=== PATIENT | female | born 1970 | race American Indian/Alaskan Native ===

== ENCOUNTER 2017-03-09 09:33 | Outpatient (CLI) | payer OTHER ==
--- NOTE | 2017-03-09 10:19 | XRay Report ---
CHEST 2 VIEWS INDICATION: Chronic cough. COMPARISON: 04/16/2014. FINDINGS: PA and lateral chest radiographs demonstrate normal cardiomediastinal silhouette. Clear lungs. Few stable bony degenerative changes. CONCLUSION: No acute disease in the chest. Thank you for the opportunity to participate in this patient's care.
== END 2017-03-09 09:34 | disposition home or self-care (01) ==
LOC: XRAY 09:33
PROVIDERS: ATTEND Internal Medicine
DX: R05 Cough (principal)
CPT/HCPCS: 71020

== ENCOUNTER 2017-07-05 11:27 | Emergency (ER) | payer OTHER ==
[2017-07-05 12:10] LABS: Basophils % (Auto) 0.9 % (0.0-1.8); Eosinophils % (Auto) 2.6 % (0.0-4.3); Hematocrit 39.7 % (30.3-42.9); Hemoglobin 13.1 gm/dl (10.1-14.3); Mean Corpuscular HGB Conc 33 % (30-34); Mean Corpuscular Hemoglobin 31 pg (28-32); Mean Corpuscular Volume 93 fl (79-97); Red Blood Count 4.28 M/mm3 (3.65-5.03); Red Cell Distribution Width 13.3 % (13.2-15.2); White Blood Count 7.4 K/mm3 (4.5-11.0)
[2017-07-05 12:29] LABS: Anion Gap 16 mmol/L; Blood Urea Nitrogen 10 mg/dL (7-17); Calcium 8.8 mg/dL (8.4-10.2); Carbon Dioxide 26 mmol/L (22-30); Chloride 103.1 mmol/L (98-107); Glucose 120 mg/dL (65-100); Potassium 4.4 mmol/L (3.6-5.0); Sodium 141 mmol/L (137-145)
[2017-07-05 14:23] LABS: Platelet Count 196 K/mm3 (140-440)
[2017-07-05] MEDS ORDERED: DECADRON IM ONE (14:42)
[2017-07-05] MEDS ORDERED: XYLOCAINE 1% 20 mL INFILTRATI ONE (14:43)
[2017-07-05] MEDS ORDERED: NORCO 5/325 PO ONE (14:51)
[2017-07-05 15:06] VITALS: BP 160/104
--- NOTE | 2017-07-05 15:28 | Emergency Department Report ---
ED General Adult HPI - General Chief complaint: Chest Pain Stated complaint: CHEST PAIN/LEFT ARM PAIN/HEADACHE Time Seen by Provider: 07/05/17 14:26 Source: patient Mode of arrival: Ambulatory Limitations: No Limitations - History of Present Illness Initial comments: Patient does not complain of chest pain at all. She complains warm pain which involves the subacromial bursa area of the left shoulder. She clearly states that she has upper arm pain and might radiate at times shoulder or just hurt at the shoulder itself. Does not involve the anterior chest over the posterior chest. It's been present for the last few days. It is clearly augmented by raising up her left arm. It is not pleuritic. There are no associated symptoms. She denies dyspnea nausea vomiting dizziness. The arm is not swollen. There has not been any recent injury. She denies any neck pain or any distal weakness or numbness. She said no paresthesias. -: Gradual, days(s) Location: left (shoulder) Radiation: other (as above) Severity scale (0 -10): 8 Quality: aching Consistency: intermittent Improves with: none Worsens with: movement Associated Symptoms: denies other symptoms - Related Data Home Medications Medication Instructions Recorded Confirmed Last Taken Nebivolol HCl [Bystolic] 5 mg PO DAILY 12/07/13 04/16/14 12/06/13 Dexlansoprazole [Dexilant] 60 mg PO DAILY 04/16/14 04/16/14 Unknown Previous Rx's Medication Instructions Recorded Last Taken Type HYDROcodone/APAP 5-325 [[place] 1 each PO Q6HR PRN #20 tablet 04/16/14 Unknown Rx 5/325 mg] Hyoscyamine Subl [Levsin Sl] 0.125 mg SL Q4HR PRN #20 tablet 04/16/14 Unknown Rx HYDROcodone/APAP 5-325 [[place] 1 each PO Q6HR PRN #14 tablet 07/05/17 Unknown Rx 5/325] Allergies Allergy/AdvReac Type Severity Reaction Status Date / Time No Known Allergies Allergy Verified 07/05/17 11:33 ED Review of Systems ROS: Stated complaint: CHEST PAIN/LEFT ARM PAIN/HEADACHE Other details as noted in HPI Constitutional: denies: chills, fever Eyes: denies: eye pain, eye discharge, vision change ENT: denies: ear pain, throat pain Respiratory: denies: cough, shortness of breath, wheezing Cardiovascular: denies: chest pain, palpitations Endocrine: no symptoms reported Gastrointestinal: denies: abdominal pain, nausea, diarrhea Genitourinary: denies: urgency, dysuria, discharge Musculoskeletal: as per HPI. denies: back pain, joint swelling, arthralgia Skin: denies: rash, lesions Neurological: denies: headache, weakness, paresthesias Psychiatric: denies: anxiety, depression Hematological/Lymphatic: denies: easy bleeding, easy bruising ED Past Medical Hx - Past Medical History Hx Hypertension: Yes Additional medical history: heart murmur - Surgical History Additional Surgical History: left ovary removed - Social History Smoking Status: Current Some Day Smoker Substance Use Type: None - Medications Home Medications: Home Medications Medication Instructions Recorded Confirmed Last Taken Type Nebivolol HCl [Bystolic] 5 mg PO DAILY 12/07/13 04/16/14 12/06/13 History Dexlansoprazole [Dexilant] 60 mg PO DAILY 04/16/14 04/16/14 Unknown History HYDROcodone/APAP 5-325 [[place] 1 each PO Q6HR PRN #20 tablet 04/16/14 Unknown Rx 5/325 mg] Hyoscyamine Subl [Levsin Sl] 0.125 mg SL Q4HR PRN #20 tablet 04/16/14 Unknown Rx HYDROcodone/APAP 5-325 [[place] 1 each PO Q6HR PRN #14 tablet 07/05/17 Unknown Rx 5/325] ED Physical Exam - General Limitations: No Limitations General appearance: alert, in no apparent distress - Head Head exam: Present: atraumatic, normocephalic - Eye Eye exam: Present: normal appearance, PERRL, EOMI. Absent: scleral icterus - ENT ENT exam: Present: mucous membranes moist - Neck Neck exam: Present: normal inspection. Absent: tenderness, meningismus - Respiratory Respiratory exam: Present: normal lung sounds bilaterally. Absent: respiratory distress - Cardiovascular Cardiovascular Exam: Present: regular rate, normal rhythm. Absent: systolic murmur, diastolic murmur, rubs, gallop - GI/Abdominal GI/Abdominal exam: Present: soft, normal bowel sounds. Absent: distended, tenderness, guarding, rebound, rigid - Extremities Exam Extremities exam: Present: normal inspection, tenderness, other (there is no swelling of the shoulder or upper arm. There is clearly reproducible pain in the subacromial bursa area especially on abduction. There is no overlying erythema.) - Back Exam Back exam: Present: normal inspection. Absent: CVA tenderness (R), CVA tenderness (L), muscle spasm, paraspinal tenderness, vertebral tenderness - Neurological Exam Neurological exam: Present: alert, oriented X3, CN II-XII intact. Absent: motor sensory deficit - Psychiatric Psychiatric exam: Present: normal affect, normal mood - Skin Skin exam: Present: warm, dry, intact, normal color. Absent: rash ED Course Vital Signs 07/05/17 07/05/17 07/05/17 11:34 12:26 12:27 Temperature 98.8 F Pulse Rate 66 Respiratory 16 Rate Blood Pressure 158/78 150/75 O2 Sat by Pulse 100 98 97 Oximetry 07/05/17 07/05/17 07/05/17 12:28 12:30 12:32 Temperature Pulse Rate 60 Respiratory 19 Rate Blood Pressure 150/75 150/75 150/75 O2 Sat by Pulse 97 98 98 Oximetry 07/05/17 07/05/17 07/05/17 13:00 13:30 14:32 Temperature Pulse Rate 57 L 57 L 64 Respiratory 16 15 Rate Blood Pressure 143/72 143/72 143/72 O2 Sat by Pulse 97 97 99 Oximetry 07/05/17 07/05/17 15:00 15:06 Temperature Pulse Rate 65 Respiratory 18 18 Rate Blood Pressure 160/104 O2 Sat by Pulse 98 98 Oximetry - Reevaluation(s) Reevaluation #1: Patient is given a shoulder injection of 10 mg of Decadron and 1 mL of lidocaine 07/05/17 15:28 Reevaluation #2: Medicine for Patient declined x-ray. She decided to leave after receiving her injection. 07/05/17 16:13 ED Medical Decision Making - Lab Data Result diagrams: 07/05/17 11:55 07/05/17 11:55 Laboratory Results - last 24 hr 07/05/17 07/05/17 11:55 11:55 WBC 7.4 RBC 4.28 Hgb 13.1 Hct 39.7 MCV 93 MCH 31 MCHC 33 RDW 13.3 Plt Count 196 Lymph % (Auto) 36.7 H [place] % (Auto) 5.4 Eos % (Auto) 2.6 Baso % (Auto) 0.9 Lymph # 2.7 [place] # 0.4 Eos # 0.2 Baso # 0.1 Seg Neutrophils % 54.4 Seg Neutrophils # 4.0 Sodium 141 Potassium 4.4 Chloride 103.1 Carbon Dioxide 26 Anion Gap 16 BUN 10 Creatinine 0.8 Estimated GFR > 60 BUN/Creatinine Ratio 12.50 Glucose 120 H Calcium 8.8 Troponin T < 0.010 - EKG Data -: EKG Interpreted by Me EKG shows normal: sinus rhythm, axis, intervals, QRS complexes, ST-T waves Rate: normal - EKG Data Interpretation: no acute changes - Radiology Data Radiology results: pending Critical care attestation.: If time is entered above; I have spent that time in minutes in the direct care of this critically ill patient, excluding procedure time. ED Disposition Clinical Impression: Bursitis of left shoulder Disposition: DC- TO HOME OR SELFCARE Is pt being admited?: No Does the pt Need Aspirin: No Condition: Stable Instructions: Shoulder Bursitis (ED) Additional Instructions: Try to keep her shoulder mobile but do not engage in any lifting for the next few days. Follow-up with the orthopedic doctor. Return any acute change or problem very follow-up with your primary care physician as well. Prescriptions: HYDROcodone/APAP 5-325 [[place] 5/325] 1 each PO Q6HR PRN #14 tablet PRN Reason: Pain Referrals: PRIMARY CAREMD [Primary Care Provider] - 3-5 Days DOMI PEREZ MD [Staff Physician] - 3-5 Days Time of Disposition: 15:28
== END 2017-07-05 15:40 | disposition home or self-care (01) ==
LOC: ED 11:27
DX: M75.52 Bursitis of left shoulder (principal); I10 Essential (primary) hypertension; Z72.0 Tobacco use
CPT/HCPCS: 36415; 80048; 84484; 85025; 93005; 93010; 96372; 99284; J1100

== ENCOUNTER 2018-06-27 18:55 | Inpatient (IN) | payer OTHER ==
[2018-06-27] MEDS ORDERED: ASPIRIN PO ONE (19:24)
[2018-06-27 19:49] LABS: Basophils # (Auto) 0.1 K/mm3 (0.0-0.1); Eosinophils # (Auto) 0.2 K/mm3 (0.0-0.4); Eosinophils % (Auto) 2.3 % (0.0-4.3); Hematocrit 41.1 % (30.3-42.9); Lymphocytes # (Auto) 3.2 K/mm3 (1.2-5.4); Lymphocytes % (Auto) 44.4 % (13.4-35.0); Mean Corpuscular HGB Conc 34 % (30-34); Mean Corpuscular Hemoglobin 32 pg (28-32); Mean Corpuscular Volume 93 fl (79-97); Monocytes # (Auto) 0.4 K/mm3 (0.0-0.8); Monocytes % (Auto) 5.9 % (0.0-7.3); Red Blood Count 4.44 M/mm3 (3.65-5.03); Red Cell Distribution Width 13.5 % (13.2-15.2)
[2018-06-27 19:59] LABS: Platelet Count 211 K/mm3 (140-440)
[2018-06-27 20:07] LABS: BUN/Creatinine Ratio 10; Blood Urea Nitrogen 8 mg/dL (7-17); Calcium 9.4 mg/dL (8.4-10.2); Hemolysis Index 7
--- NOTE | 2018-06-28 01:10 | Emergency Department Report ---
ED Chest Pain HPI - General Chief Complaint: Chest Pain Stated Complaint: CHEST PAIN Time Seen by Provider: 06/28/18 00:55 Source: patient Mode of arrival: Ambulatory Limitations: No Limitations - History of Present Illness Initial Comments: 47-year-old female with a past medical history hypertension and heart murmur presents to the hospital complaints of intermittent chest tightness for 2-3 days. Tightness is in the middle of the chest and radiates to the left side. Positive associated shortness of breath and lightheadedness. Symptoms exacerbated with exertion. Positive history of hypertension but she does not take aspirin, denies smoking, denies family history of CAD. She also denies history of PE/DVT, recent travel, calf tenderness, or leg edema. Last stress test was approximately 5 to go and to her knowledge was normal. Patient also complains of waking up with bilateral hand paresthesias with has since resolved. - Related Data Home Medications Medication Instructions Recorded Confirmed Last Taken Nebivolol HCl [Bystolic] 5 mg PO DAILY 12/07/13 04/16/14 12/06/13 Dexlansoprazole [Dexilant] 60 mg PO DAILY 04/16/14 04/16/14 Unknown Previous Rx's Medication Instructions Recorded Last Taken Type HYDROcodone/APAP 5-325 [[place] 1 each PO Q6HR PRN #20 tablet 04/16/14 Unknown Rx 5/325 mg] Hyoscyamine Subl [Levsin Sl] 0.125 mg SL Q4HR PRN #20 tablet 04/16/14 Unknown Rx HYDROcodone/APAP 5-325 [[place] 1 each PO Q6HR PRN #14 tablet 07/05/17 Unknown Rx 5/325] Allergies Allergy/AdvReac Type Severity Reaction Status Date / Time No Known Allergies Allergy Verified 07/05/17 11:33 Heart Score - HEART Score History: Slightly suspicious EKG: Non-specific Age: 45-65 Risk factors: 1-2 risk factors Troponin: < normal limit HEART Score: 3 ED Review of Systems ROS: Stated complaint: CHEST PAIN Other details as noted in HPI Comment: All other systems reviewed and negative ED Past Medical Hx - Past Medical History Hx Hypertension: Yes Additional medical history: heart murmur - Surgical History Additional Surgical History: left ovary removed - Social History Smoking Status: Current Every Day Smoker Substance Use Type: None - Medications Home Medications: Home Medications Medication Instructions Recorded Confirmed Last Taken Type Nebivolol HCl [Bystolic] 5 mg PO DAILY 12/07/13 04/16/14 12/06/13 History Dexlansoprazole [Dexilant] 60 mg PO DAILY 04/16/14 04/16/14 Unknown History HYDROcodone/APAP 5-325 [[place] 1 each PO Q6HR PRN #20 tablet 04/16/14 Unknown Rx 5/325 mg] Hyoscyamine Subl [Levsin Sl] 0.125 mg SL Q4HR PRN #20 tablet 04/16/14 Unknown Rx HYDROcodone/APAP 5-325 [[place] 1 each PO Q6HR PRN #14 tablet 07/05/17 Unknown Rx 5/325] ED Physical Exam - General Limitations: No Limitations - Other Other exam information: General: No limitations, patient is alert in no acute distress Head exam: Atraumatic, normocephalic Eyes exam: Normal appearance ENT: Moist mucous membrane, normal oropharynx Neck exam: Normal inspection, full range of motion, no meningismus nontender Respiratory exam: Clear to auscultation bilateral, no wheezes, rales, crackles Cardiovascular: Normal rate and rhythm, mild sternal chest pain that is different from her intermittent chest tightness Abdomen: Soft, nondistended, and nontender, with normal bowel sounds, no rebound, or guarding Extremity: Full range of motion normal inspection no deformity, no calf tenderness or edema Back: Normal Inspection, full range of motion, no calf tenderness or edema Neurologic: Alert, oriented x3, cranial nerves intact, no motor or sensory deficit Psychiatric: normal affect, normal mood Skin: Warm, dry, intact ED Course Vital Signs 06/27/18 06/28/18 19:17 01:21 Temperature 98.2 F 98.3 F Pulse Rate 64 68 Respiratory 18 16 Rate Blood Pressure 142/68 Blood Pressure 143/76 [Left] O2 Sat by Pulse 97 100 Oximetry BETTY score - Betty Score Age > 65: (0) No Aspirin use within the Past 7 Days: (0) No 3 or more CAD Risk Factors: (0) No 2 or more Angina events in past 24 hrs: (1) Yes Known CAD with more than 50% Stenosis: (0) No ST Deviation Greater than 0.5mm: (0) No ED Medical Decision Making - Lab Data Result diagrams: 06/27/18 19:36 06/27/18 19:36 Lab Results 06/27/18 06/27/18 06/27/18 Range/Units 19:36 19:36 22:27 WBC 7.3 (4.5-11.0) K/mm3 RBC 4.44 (3.65-5.03) M/mm3 Hgb 14.0 (10.1-14.3) gm/dl Hct 41.1 (30.3-42.9) % MCV 93 (79-97) fl MCH 32 (28-32) pg MCHC 34 (30-34) % RDW 13.5 (13.2-15.2) % Plt Count 211 (140-440) K/mm3 Lymph % (Auto) 44.4 H (13.4-35.0) % [place] % (Auto) 5.9 (0.0-7.3) % Eos % (Auto) 2.3 (0.0-4.3) % Baso % (Auto) 1.0 (0.0-1.8) % Lymph # 3.2 (1.2-5.4) K/mm3 [place] # 0.4 (0.0-0.8) K/mm3 Eos # 0.2 (0.0-0.4) K/mm3 Baso # 0.1 (0.0-0.1) K/mm3 Seg Neutrophils % 46.4 (40.0-70.0) % Seg Neutrophils # 3.4 (1.8-7.7) K/mm3 Sodium 140 (137-145) mmol/L Potassium 4.0 (3.6-5.0) mmol/L Chloride 101.7 (98-107) mmol/L Carbon Dioxide 27 (22-30) mmol/L Anion Gap 15 mmol/L BUN 8 (7-17) mg/dL Creatinine 0.8 (0.7-1.2) mg/dL Estimated GFR > 60 ml/min BUN/Creatinine Ratio 10 % Glucose 96 (65-100) mg/dL Calcium 9.4 (8.4-10.2) mg/dL Troponin T < 0.010 < 0.010 (0.00-0.029) ng/mL - EKG Data -: EKG Interpreted by Me ([facility]) EKG shows normal: sinus rhythm, axis (qrs 64), QRS complexes (qrsd 81), ST-T waves (no stemi) Rate: normal (62) - EKG Data When compared to previous EKG there are: no significant change (07/05/17) - Radiology Data Radiology results: report reviewed cxr read by radiology: ashu - Medical Decision Making cp neg trop x2 ekg lvh will admit for stress asa provided - Differential Diagnosis atypical cp, pe, mi, unstable angina, costochondritis Critical Care Time: No Critical care attestation.: If time is entered above; I have spent that time in minutes in the direct care of this critically ill patient, excluding procedure time. ED Disposition Clinical Impression: Chest pain, HTN (hypertension) Disposition: OP ADMIT IP TO THIS HOSP Is pt being admited?: Yes Condition: Stable Time of Disposition: 01:11 (Dr Echols/hosp)
[2018-06-28] MEDS ORDERED: ASPIRIN ONE (01:28)
--- NOTE | 2018-06-28 01:32 | XRay Report ---
FINAL REPORT EXAM: XR CHEST ROUTINE 2V HISTORY: sob and chest pain TECHNIQUE: 2 views of the chest. PRIORS: None. FINDINGS: The cardiomediastinal silhouette appears normal. The lungs are clear. The bones and soft tissues are unremarkable. IMPRESSION: No evidence of acute cardiopulmonary disease
[2018-06-28] MEDS ORDERED: TYLENOL PO ONE (02:08)
[2018-06-28] MEDS ORDERED: TYLENOL ONE (03:41)
--- NOTE | 2018-06-28 06:32 | History and Physical Report ---
CHIEF COMPLAINT: Left-sided chest pain with radiation to left arm. HISTORY OF PRESENT ILLNESS: A 47-year-old female with no significant past medical history except hypertension and heart murmur and gastroesophageal reflux disease, comes in for left-sided chest pain since this morning. The patient also has tingling and pain in the left arm. 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 The patient is concerned about cerebrovascular accident. PAST MEDICAL HISTORY: Significant for hypertension, gastroesophageal reflux disease and irritable bowel syndrome. CURRENT MEDICATIONS: Bystolic 5 mg once a day, Dexilant 60 mg once a day, Levsin sublingual 0.125 q. 4 p.r.n., [place] 5/325 q. 6 hours p.r.n. PAST SURGICAL HISTORY: Left ovary removed. SOCIAL HISTORY: Does not smoke. No alcohol, no recreational drugs. FAMILY HISTORY: Hypertension. REVIEW OF SYSTEMS: Significant for the left chest pain with radiation to left arm. No weakness. Fourteen-point review of systems done. PHYSICAL EXAMINATION: GENERAL: A middle-aged female, cooperative during examination. VITAL SIGNS: Blood pressure is 138/80, respirations 16, temperature 98, repeat blood pressure is 142/68, sats are 97%, respiratory rate was 18. HEENT: Unremarkable. NECK: Supple, no lymphadenopathy, no thyromegaly. LUNGS: Clear to auscultation and percussion. Good air entry. CARDIOVASCULAR SYSTEM: S1, S2 heard. No gallop, no murmur, no rub. Apical impulse in left fifth intercostal space in midclavicular line. ABDOMEN: Soft and benign. No hepatosplenomegaly. No guarding, no rigidity. Hernial orifices are normal. EXTREMITIES: Good pedal pulses. No pedal edema. CENTRAL NERVOUS SYSTEM: Alert and oriented x 4, nonfocal exam. SKIN: Normal. LABORATORY DATA: On the chart. HouseTrip not accessible at this point. DIAGNOSTIC DATA: EKG shows heart rate of 62 per minute, left ventricular hypertrophy present. ASSESSMENT AND PLAN: 1. Chest pain, rule out myocardial infarction, chest pain protocol. 2. Hypertension. Continue Bystolic. 3. Gastroesophageal reflux disease, continue Dexilant. 4. Irritable bowel syndrome. Continue Levsin. 5. Deep venous thrombosis prophylaxis, Lovenox 40 mg subcutaneous daily. [facility]# [id number] YUSUF/DAGOBERTO
[2018-06-28] MEDS: TORADOL IV PRN ×3 (08:13→21:17)
--- NOTE | 2018-06-28 08:22 | Event Note ---
Date: 06/28/18 See dictated H/p in reports Chest painr/o AR protocol C/o L arm pain and Patient concerned about stroke No Neurologic deficits No stroke w/u except CT Head
[2018-06-28] MEDS ORDERED: LEXISCAN IV ONE ×2 (09:30→09:34)
[2018-06-28] MEDS ORDERED: NON-FORMULARY (Dexlansoprazole [Dexilant] 60 MG) PO SCH (10:00)
[2018-06-28] MEDS ORDERED: LOPRESSOR PO SCH (10:00)
--- NOTE | 2018-06-28 10:55 | Cat Scan Report ---
CT HEAD WITHOUT CONTRAST: HISTORY: Neurological symptoms. TECHNIQUE: Sequential 2.5mm CT images. COMPARISON: none. FINDINGS: Cerebral Parenchyma: Within normal limits. Cerebellum: Within normal limits. Brainstem: Within normal limits. Ventricles: Normal. Sella: Normal. Extra-axial spaces: Normal. Basal Cisterns: Normal. Intracranial Hemorrhage: None. Midline Shift: None. Calvarium: Normal. Sinuses: Normal. Mastoid Air Cells: Normal. Visualized Orbits: Normal. IMPRESSION: Cranial CT scan within normal limits.
[2018-06-28] MEDS: PROTONIX PO SCH (14:16)
[2018-06-28] MEDS: HABITROL TD SCH (14:17)
--- NOTE | 2018-06-28 14:22 | Consultation ---
History of Present Illness Consult date: 06/28/18 Requesting physician: MARIAH JOY Consult reason: chest pain History of present illness: The patient is a 47-year-old female with a past medical history significant for hypertension and tobacco use. She presented with complaints of intermittent left upper extremity pain, chest pain, and right hand pain with swelling for 2- 3 days prior to arrival. She describes her chest pain as a midsternal tightness that sometimes radiates into her left arm. She also admits to some bilateral lower extremity swelling. She underwent lexiscan MPI stress test this AM which was positive for mild ischemia with EF 53% and thus cardiology has been consulted for further eval/management. Past History Past Medical History: hypertension Social history: smoking Medications and Allergies Allergies Allergy/AdvReac Type Severity Reaction Status Date / Time No Known Allergies Allergy Verified 07/05/17 11:33 Home Medications Medication Instructions Recorded Confirmed Last Taken Type Nebivolol HCl [Bystolic] 5 mg PO DAILY 12/07/13 06/28/18 12/06/13 History Dexlansoprazole [Dexilant] 60 mg PO DAILY 04/16/14 06/28/18 Unknown History HYDROcodone/APAP 5-325 [[place] 1 each PO Q6HR PRN #20 tablet 04/16/14 06/28/18 Unknown Rx 5/325 mg] Active Meds: Active Medications Aspirin (Baby Aspirin) 81 mg PO QDAY [facility] Ketorolac Tromethamine (Toradol) 15 mg IV Q6H PRN PRN Reason: Pain, Mild (1-3) Stop: 07/03/18 07:28 Last Admin: 06/28/18 14:17 Dose: 15 mg Nicotine (Habitrol) 21 mg TD QDAY [facility] Last Admin: 06/28/18 14:17 Dose: 21 mg Pantoprazole Sodium (Protonix) 40 mg PO DAILY [facility] Last Admin: 06/28/18 14:16 Dose: 40 mg Review of Systems Constitutional: no weight loss, no weight gain, no fever, no chills, no sweats Ears, nose, mouth and throat: no ear pain, no nose pain, no sinus pressure, no sinus pain Cardiovascular: chest pain, leg edema, no orthopnea, no palpitations, no rapid/ irregular heart beat, no syncope, no lightheadedness, no shortness of breath Respiratory: no cough, no shortness of breath, no congestion, no wheezing, no pain on inspiration Gastrointestinal: no abdominal pain, no nausea, no vomiting, no diarrhea, no constipation, no change in bowel habits Genitourinary Female: no pelvic pain, no flank pain Musculoskeletal: other (LUE pain, right hand pain and swelling), no neck stiffness, no neck pain Integumentary: no rash, no pruritis, no redness, no sores, no wounds Neurological: no head injury, no paralysis, no weakness, no parathesias, no numbness, no tingling, no seizures, no syncope Psychiatric: no anxiety Endocrine: no cold intolerance, no heat intolerance Hematologic/Lymphatic: no easy bruising, no easy bleeding Allergic/Immunologic: no urticaria, no wheezing Physical Examination Vital Signs Temp Pulse Resp BP Pulse Ox 98.2 F 64 18 142/68 97 06/27/18 19:17 06/27/18 19:17 06/27/18 19:17 06/27/18 19:17 06/27/18 19:17 General appearance: no acute distress HEENT: Positive: PERRL, Normocephaly, Mucus Membranes Moist Neck: Positive: neck supple, trachea midline Cardiac: Positive: Reg Rate and Rhythm, S1/S2 Lungs: Positive: clear to auscultation Neuro: Positive: Grossly Intact Abdomen: Positive: Soft. Negative: Tender Skin: Positive: Clear. Negative: Rash, Wound Musculoskeletal: No Fluid Collection, No Pain, Normal Range of Motion Extremities: Absent: edema Results 06/27/18 19:36 06/27/18 19:36 CBC 06/27/18 Range/Units 19:36 WBC 7.3 (4.5-11.0) K/mm3 RBC 4.44 (3.65-5.03) M/mm3 Hgb 14.0 (10.1-14.3) gm/dl Hct 41.1 (30.3-42.9) % Plt Count 211 (140-440) K/mm3 Lymph # 3.2 (1.2-5.4) K/mm3 [place] # 0.4 (0.0-0.8) K/mm3 Eos # 0.2 (0.0-0.4) K/mm3 Baso # 0.1 (0.0-0.1) K/mm3 Comprehensive Metabolic Panel 06/27/18 Range/Units 19:36 Sodium 140 (137-145) mmol/L Potassium 4.0 (3.6-5.0) mmol/L Chloride 101.7 (98-107) mmol/L Carbon Dioxide 27 (22-30) mmol/L BUN 8 (7-17) mg/dL Creatinine 0.8 (0.7-1.2) mg/dL Glucose 96 (65-100) mg/dL Calcium 9.4 (8.4-10.2) mg/dL - Imaging and Cardiology EKG: report reviewed, image reviewed EKG interpretations - Telemetry EKG Rhythm: Sinus Rhythm - EKG Sinus rhythms and dysrhythmias: sinus rhythm Chamber hypertrophy or enlargement: left ventricular hypertro Repolarization changes or abnormalities: repolarization abn secondary to ventricular hypertrophy Assessment and Plan Optimize anti-ischemic regimen. Encourage ambulation. If chest pain persists despite optimal medical therapy, can consider coronary angiography for definitive diagnosis. Assessment and plan reviewed with pt at bedside. The patient has been seen in conjunction with Dr. Machado who agrees with the assessment and plan of care. - Patient Problems (1) Chest pain Current Visit: Yes Status: Acute (2) Abnormal stress test Current Visit: Yes Status: Acute (3) HTN (hypertension) Current Visit: Yes Status: Chronic (4) Tobacco use Current Visit: Yes Status: Chronic
--- NOTE | 2018-06-28 15:54 | Treadmill Report ---
NAME OF TEST: Lexiscan stress test report. REASON FOR STUDY: Chest pain. STRESS TEST PROTOCOL: The patient received 0.4 mg of Lexiscan intravenously over 10 seconds. Technetium-99m Tetrofosmin was subsequently injected. Baseline EKG, normal sinus rhythm. Lexiscan EKG, no diagnostic ischemic changes. No chest pain. No arrhythmias. IMPRESSION: Electrocardiographically negative stress test. Nuclear imaging report to follow. JOB# [id number] AGO/NTS
--- NOTE | 2018-06-28 16:20 | Discharge Summary ---
Providers - Providers Date of Admission: 06/28/18 01:11 Attending physician: KRISTAL PACKER MD 06/28/18 16:02 Consult to Physician [CONS] Routine Comment: Consulting Provider: JERRELL ELKINS Physician Instructions: Reason For Exam: Abnl stress test Primary care physician: RING SORTER Hospitalization Condition: Stable Hospital course: 47-year-old woman who presented with chest pain. An ACS was ruled out. And she went on to have a stress test that was negative. Pain was most likely due to GERD, she is told to continue her good medication. Diagnoses Chest pain due to GERD Hypertension Irritable bowel syndrome Disposition: TO HOME OR SELFCARE Time spent for discharge: 33 minutes Core Measure Documentation - Palliative Care Palliative Care/ Comfort Measures: Not Applicable - Core Measures Any of the following diagnoses?: none Exam - Constitutional Vitals: Temp Pulse Resp BP Pulse Ox 97.9 F 68 12 125/54 100 06/28/18 08:00 06/28/18 12:00 06/28/18 12:00 06/28/18 14:16 06/28/18 03:56 General appearance: Present: no acute distress, well-nourished - EENT Eyes: Present: PERRL ENT: hearing intact, clear oral mucosa - Neck Neck: Present: supple, normal ROM - Respiratory Respiratory effort: normal Respiratory: bilateral: CTA - Cardiovascular Heart Sounds: Present: S1 & S2. Absent: rub, click - Extremities Extremities: pulses symmetrical, No edema Peripheral Pulses: within normal limits - Abdominal General gastrointestinal: Present: soft, non-tender, non-distended, normal bowel sounds Female genitourinary: Present: normal - Integumentary Integumentary: Present: clear, warm, dry - Musculoskeletal Musculoskeletal: gait normal, strength equal bilaterally - Psychiatric Psychiatric: appropriate mood/affect, intact judgment & insight - Neurologic Neurologic: CNII-XII intact, moves all extremities Plan Follow up with: PRIMARY CARE, [Primary Care Provider] - 3-5 Days
--- NOTE | 2018-06-29 01:12 | Treadmill Report ---
THALLIUM REPORT REASON FOR STUDY: Chest pain. IMAGING PROTOCOL: The patient received 10 mCi of technetium-99m Tetrofosmin for rest imaging, and 28 mCi of technetium-99m Tetrofosmin for stress imaging. Imaging for all procedures was completed 30-90 minutes following the initial injection of Technetium 99m Tetrofosmin. SPECT imaging in the 180 degree arc was performed in the right anterior oblique projection. Computerized reconstruction of the images was performed for analysis. NUCLEAR IMAGING RESULTS: Normal left ventricular cavity size with no change from stress to rest. Distribution of radionuclide within the left ventricle revealed a medium-sized area of photo-induction involving the anterior wall. The degree of photo-induction is moderate. Rest imaging showed mild improvement in this defect. There is also a small area of photo-induction involving the anteroapical wall. The degree of photo-induction is moderate. Rest imaging does not show any significant improvement in this defect. Gated SPECT imaging revealed normal global LV systolic function with septal hypokinesis. The calculated left ventricular ejection fraction is 53%. IMPRESSION: Medium size, predominantly fixed, mildly reversible anterior defect. Small fixed anteroapical defect. Normal global LV systolic function with septal hypokinesis. EF 53%. These findings suggest prior infarction with mild residual ischemia in the left anterior descending coronary artery territory. [facility]# [id number] JING/DAGOBERTO
[2018-06-29 05:52] LABS: Basophils # (Auto) 0.1 K/mm3 (0.0-0.1); Basophils % (Auto) 0.8 % (0.0-1.8); Eosinophils # (Auto) 0.2 K/mm3 (0.0-0.4); Eosinophils % (Auto) 2.9 % (0.0-4.3); Hematocrit 38.1 % (30.3-42.9); Hemoglobin 12.8 gm/dl (10.1-14.3); Lymphocytes # (Auto) 3.5 K/mm3 (1.2-5.4); Lymphocytes % (Auto) 48.1 % (13.4-35.0); Mean Corpuscular HGB Conc 34 % (30-34); Mean Corpuscular Hemoglobin 31 pg (28-32); Mean Corpuscular Volume 92 fl (79-97); Monocytes # (Auto) 0.5 K/mm3 (0.0-0.8); Monocytes % (Auto) 6.9 % (0.0-7.3); Red Blood Count 4.12 M/mm3 (3.65-5.03); Red Cell Distribution Width 13.1 % (13.2-15.2)
[2018-06-29 06:04] LABS: INR 0.89 (0.87-1.13)
[2018-06-29 06:19] LABS: BUN/Creatinine Ratio 18; Blood Urea Nitrogen 14 mg/dL (7-17); Calcium 8.9 mg/dL (8.4-10.2); Hemolysis Index 5
[2018-06-29 06:43] LABS: Platelet Count 187 K/mm3 (140-440)
[2018-06-29] MEDS ORDERED: LOPRESSOR PO SCH (10:00)
[2018-06-29] MEDS ORDERED: BABY ASPIRIN PO SCH (10:00)
[2018-06-29] MEDS ORDERED: HALFPRIN EC PO ONE (10:56)
[2018-06-29] MEDS ORDERED: VERSED ONE (11:32)
[2018-06-29] MEDS ORDERED: HEPARIN 10,000 UNITS/10 ML ONE (11:32)
[2018-06-29] MEDS ORDERED: HEPARIN/NS 5000 UNIT/500ML(CATH LAB) 1,000 ML IR ONE (11:32)
[2018-06-29] MEDS ORDERED: SUBLIMAZE ONE (11:33)
[2018-06-29] MEDS ORDERED: XYLOCAINE 2% INFILTRATI ONE (11:33)
[2018-06-29] MEDS ORDERED: CALAN ONE (11:33)
[2018-06-29] MEDS ORDERED: NITROGLYCERIN SYRINGE 0 ML ONE (11:33)
[2018-06-29] MEDS ORDERED: NACL 0.9% 500 ML 500 ML ONE (11:50)
--- NOTE | 2018-06-29 12:41 | Progress Note ---
Assessment and Plan s/p [facility] this AM which showed normal coronaries. Currently stable cardiac status. Pt may discharge home from cardiology standpoint following completion of post-cath order set. Recommend follow up in our office with Dr. Machado within 2 weeks of hospital discharge ([phone]). The patient has been seen in conjunction with Dr. Machado who agrees with the assessment and plan of care. - Patient Problems (1) Chest pain Current Visit: Yes Status: Acute (2) Abnormal stress test Current Visit: Yes Status: Acute (3) HTN (hypertension) Current Visit: Yes Status: Chronic (4) Tobacco use Current Visit: Yes Status: Chronic Subjective Date of service: 06/29/18 Principal diagnosis: chest pain Interval history: seen s/p [facility], no current complaints. Objective Last Vital Signs Temp 98.7 F 06/29/18 13:12 Pulse 66 06/29/18 14:25 Resp 20 06/29/18 14:25 BP 135/66 06/29/18 14:25 Pulse Ox 98 06/29/18 14:25 - Physical Examination General: No Apparent Distress HEENT: Positive: PERRL, Normocephaly, Mucus Membranes Moist Neck: Positive: neck supple, trachea midline Cardiac: Positive: Reg Rate and Rhythm, S1/S2 Lungs: Positive: clear to auscultation Neuro: Positive: Grossly Intact Abdomen: Positive: Soft. Negative: Tender Skin: Positive: Clear. Negative: Rash, Wound Musculoskeletal: No Fluid Collection, No Pain, Normal Range of Motion Extremities: Absent: edema - Labs and Meds Coagulation 06/29/18 Range/Units 05:35 PT 12.5 (12.2-14.9) Sec. INR 0.89 (0.87-1.13) CBC 06/29/18 Range/Units 05:35 WBC 7.3 (4.5-11.0) K/mm3 RBC 4.12 (3.65-5.03) M/mm3 Hgb 12.8 (10.1-14.3) gm/dl Hct 38.1 (30.3-42.9) % Plt Count 187 (140-440) K/mm3 Lymph # 3.5 (1.2-5.4) K/mm3 [place] # 0.5 (0.0-0.8) K/mm3 Eos # 0.2 (0.0-0.4) K/mm3 Baso # 0.1 (0.0-0.1) K/mm3 Comprehensive Metabolic Panel 06/29/18 Range/Units 05:35 Sodium 141 (137-145) mmol/L Potassium 3.9 (3.6-5.0) mmol/L Chloride 105.0 (98-107) mmol/L Carbon Dioxide 27 (22-30) mmol/L BUN 14 (7-17) mg/dL Creatinine 0.8 (0.7-1.2) mg/dL Glucose 102 H (65-100) mg/dL Calcium 8.9 (8.4-10.2) mg/dL - Imaging and Cardiology EKG: report reviewed, image reviewed - EKG Sinus rhythms and dysrhythmias: sinus rhythm Chamber hypertrophy or enlargement: left ventricular hypertro Repolarization changes or abnormalities: repolarization abn secondary to ventricular hypertrophy
--- NOTE | 2018-06-29 12:42 | Cardiac Catherization Report ---
CARDIAC CATHETERIZATION INDICATION FOR PROCEDURE: The patient is a 47-year-old -[place]i female with complaints of chest pain of few days' duration. She has mildly abnormal stress nuclear imaging and continues to have chest pains at rest. Hence scheduled for cardiac catheterization for definitive diagnosis and treatment. The patient is aware of the procedure, potential complications and alternatives of therapy available. The patient is willing to proceed with cardiac catheterization for definite diagnosis and treatment. DESCRIPTION OF PROCEDURE: The patient was brought to the catheterization laboratory in fasting condition. The patient was evaluated for appropriateness for moderate sedation and was felt to be appropriate, and the patient was sedated with IV Versed and fentanyl. Subsequently, the patient was prepared and draped in a standard fashion. Right wrist area was anesthetized with local anesthesia and right radial artery puncture was made using 21-gauge arterial puncture needle. A 5-[place]ian slender sheath was introduced. A 5-[place]ian multipurpose catheter was used to obtain the angiograms of the left coronary artery in multiple views. Then, JR4 catheter was used to obtain the angiograms of the right coronary artery; however, could not enter the LV. Hence, no further attempt was made to enter the LV. Following findings were noted: HEMODYNAMICS: 1. Opening aortic pressure 144/74. 2. Right coronary artery dominant vessel, arises normally from right coronary cusp, angiographically smooth and normal. 3. Left coronary artery arises normally from the coronary cusp. Left main, LAD and its branches, circumflex artery and its branch are angiographically smooth and normal. Normal coronary anatomy. 4. Left ventriculogram was not performed. 5. Right radial artery was used for access. Good hemostasis was achieved with pressure bandage. No untoward complications were noted. The patient was sedated with IV Versed and fentanyl, and monitored with pulse oximetry, EKG monitoring and hemodynamic monitoring. At the end of the procedure, the patient is oriented x 3, moving all extremities. No side effects noted from moderate sedation. The patient was started with IV sedation around 12:02 up to 12:18 at which time the patient was transferred to the outpatient area in a stable condition. The patient will be continued on risk factor modification. Findings were explained to the patient. JOB# [id number] TACO/DAGOBERTO
[2018-06-29] MEDS: HABITROL TD SCH (14:39)
[2018-06-29] MEDS: PROTONIX PO SCH (14:40)
[2018-06-29] MEDS: TORADOL IV PRN (14:56)
--- NOTE | 2018-06-29 15:08 | Discharge Summary ---
Providers - Providers Date of Admission: 06/28/18 01:11 Date of discharge: 06/29/18 Attending physician: PAPO BUTTERFIELD 06/28/18 16:02 Consult to Physician [CONS] Routine Comment: Consulting Provider: JERRELL ELKINS Physician Instructions: Reason For Exam: Abnl stress test 06/29/18 12:32 Consult to Cardiac Rehabilitation [CONS] Routine Reason For Exam: Cardiac Rehab Evaluation Primary care physician: M[employer]UAL [employer]D MANAGER Hospitalization Condition: Stable Hospital course: Patient is a 47-year-old woman with a history significant for hypertension, GERD and tobacco use who pw chest pains. She underwent lexiscan MPI stress test this AM which was positive for mild ischemia with EF 53% and thus cardiology has been can (1) Chest pain, atypical, suspect GERD related, with normal coronaries Current Visit: Yes Status: Acute (2) Abnormal stress test, false positive Current Visit: Yes Status: Acute (3) HTN (hypertension) Current Visit: Yes Status: Chronic (4) Tobacco use, counseled on stopping Current Visit: Yes Status: Chronic Disposition: DC- TO HOME OR SELFCARE Time spent for discharge: 31 minutes Core Measure Documentation - Palliative Care Palliative Care/ Comfort Measures: Not Applicable - Core Measures Any of the following diagnoses?: none - VTE Discharge Requirements Deep Vein Thrombosis/Pulmonary Embolism Present on Admission: No Has pt received <5 days of overlap therapy or INR<2.0: No Anticoagulant overlap therapy prescribed at discharge: No Contraindication No Overlap Therapy order at DC: Not Indicated Exam - Physical Exam Narrative exam: GEN: WDWN, NAD, Awake, Alert, Orientated x 3 HEENT: NCAT, EOMI, PERRL, OP Clear NECK: supple, no adenopathy, no thyromegaly, no JVD CVS/HEART: RRR, normal S1S2, pulses present bilaterally CHEST/LUNGS: CTA B, Symmetrical chest expansion, good air entry bilaterally GI/Abdomen: soft, NTND, good bowel sounds, no guarding or rebound /Bladder: no suprapubic tenderness, no CVA or paraspinal tenderness EXT/Skin: no c/c/e, no obvious rash MSK: FROM x 4 Neuro: CN 2-12 grossly intact, no new focal deficits Psych: calm - Constitutional Vitals: Temp Pulse Resp BP Pulse Ox 98.7 F 58 L 20 126/66 98 06/29/18 13:12 06/29/18 14:41 06/29/18 14:56 06/29/18 14:41 06/29/18 14:25 Plan Activity: other (no strenous activity unless cleared by pcp) Diet: low salt Special Instructions: smoking cessation Follow up with: [facility] [Provider Group] - 7 Days PRIMARY CARE,MD [Primary Care Provider] - 3-5 Days Prescriptions: Dexlansoprazole [Dexilant] 60 mg PO DAILY #30 holly.bp HYDROcodone/APAP 5-325 [[place] 5-325 mg TAB] 1 each PO Q6HR PRN #12 tablet PRN Reason: Pain , Severe (7-10) Nebivolol HCl [Bystolic] 5 mg PO DAILY #30 tablet
[2018-06-29 17:56] VITALS: BP 140/74
== END 2018-06-29 21:00 | disposition home or self-care (01) | DRG 392 ==
LOC: ED 18:55 → IMCU 06-28 01:11 → 4A 06-28 23:18
PROVIDERS: ADMIT Internal Medicine; ATTEND Internal Medicine
PROC: 4A023N7 Measurement of Cardiac Sampling and Pressure, Left Heart, Percutaneous Approach (ICD-10-PCS; principal; 2018-06-29)
PROC: B2111ZZ Fluoroscopy of Multiple Coronary Arteries using Low Osmolar Contrast (ICD-10-PCS; 2018-06-29)
DX: K21.9 Gastro-esophageal reflux disease without esophagitis (principal); I10 Essential (primary) hypertension; K58.9 Irritable bowel syndrome, unspecified; F17.210 Nicotine dependence, cigarettes, uncomplicated; Z90.721 Acquired absence of ovaries, unilateral; Z82.49 Family history of ischemic heart disease and other diseases of the circulatory system; Z71.6 Tobacco abuse counseling
CPT/HCPCS: 36415; 70450; 71046; 78452; 80048; 84484; 85025; 85610; 93005; 93010; 93017; 93458; A9270-GY; A9502; C1894; J1644; J1885; J2250; J2785; J3010; J7040; Q9967

== ENCOUNTER 2018-11-16 23:21 | Emergency (ER) | payer OTHER ==
[2018-11-16] MEDS ORDERED: ASPIRIN PO ONE (23:49)
[2018-11-17 00:31] LABS: Basophils # (Auto) 0.1 K/mm3 (0.0-0.1); Basophils % (Auto) 0.8 % (0.0-1.8); Eosinophils # (Auto) 0.2 K/mm3 (0.0-0.4); Eosinophils % (Auto) 1.8 % (0.0-4.3); Hematocrit 38.9 % (30.3-42.9); Hemoglobin 12.9 gm/dl (10.1-14.3); Lymphocytes # (Auto) 4.1 K/mm3 (1.2-5.4); Lymphocytes % (Auto) 39.6 % (13.4-35.0); Mean Corpuscular HGB Conc 33 % (30-34); Mean Corpuscular Volume 95 fl (79-97); Monocytes # (Auto) 0.5 K/mm3 (0.0-0.8); Monocytes % (Auto) 4.7 % (0.0-7.3); Platelet Count 249 K/mm3 (140-440)
[2018-11-17 00:58] LABS: BUN/Creatinine Ratio 10; Blood Urea Nitrogen 9 mg/dL (7-17); Calcium 9.4 mg/dL (8.4-10.2); Hemolysis Index 7
--- NOTE | 2018-11-17 02:32 | Emergency Department Report ---
ED Chest Pain HPI - General Chief Complaint: Chest Pain Stated Complaint: CHEST PAIN Time Seen by Provider: 11/17/18 02:21 Source: patient Mode of arrival: Ambulatory Limitations: No Limitations - History of Present Illness Initial Comments: Patient is 48 years old female with history of hypertension. Patient presented to the ER complaining of left-sided chest pain for the last 2-3 months. Patient stated that pain get worse tonight. Patient described her pain as sharp, on and off, increases with movement and decreased with remaining still. Patient denied any shortness of breath, fever or cough. MD Complaint: chest pain -: month(s), Last night Onset: during rest Pain Location: left chest Severity scale (0 -10): 10 Quality: sharp Improves With: remaining still Worsens With: movement - Related Data Previous Rx's Medication Instructions Recorded Last Taken Type Dexlansoprazole [Dexilant] 60 mg PO DAILY #30 holly.bp 06/29/18 Unknown Rx HYDROcodone/APAP 5-325 [[place] 1 each PO Q6HR PRN #12 tablet 06/29/18 Unknown Rx 5-325 mg TAB] Nebivolol HCl [Bystolic] 5 mg PO DAILY #30 tablet 06/29/18 Unknown Rx Allergies Allergy/AdvReac Type Severity Reaction Status Date / Time No Known Allergies Allergy Verified 07/05/17 11:33 Heart Score - HEART Score History: Slightly suspicious EKG: Normal Age: 45-65 Risk factors: 1-2 risk factors Troponin: < normal limit HEART Score: 2 - Critical Actions Critical Actions: 0-3 pts:0.9-1.7%risk of adverse cardiac event.Candidate for discharge ED Review of Systems ROS: Stated complaint: CHEST PAIN Other details as noted in HPI Comment: All other systems reviewed and negative Constitutional: denies: chills, fever Respiratory: denies: cough, orthopnea, shortness of breath, SOB with exertion, SOB at rest, wheezing Cardiovascular: chest pain Gastrointestinal: denies: abdominal pain, nausea, vomiting, diarrhea, con stipation, hematemesis, melena Musculoskeletal: denies: back pain Neurological: denies: headache, weakness, numbness, paresthesias, confusion, abnormal gait ED Past Medical Hx - Past Medical History Previous Medical History?: Yes Hx Hypertension: Yes Additional medical history: heart murmur - Surgical History Past Surgical History?: Yes Additional Surgical History: left ovary removed - Social History Smoking Status: Current Every Day Smoker Substance Use Type: None - Medications Home Medications: Home Medications Medication Instructions Recorded Confirmed Last Taken Type Dexlansoprazole [Dexilant] 60 mg PO DAILY #30 bp 06/29/18 Unknown Rx HYDROcodone/APAP 5-325 [[place] 1 each PO Q6HR PRN #12 tablet 06/29/18 Unknown Rx 5-325 mg TAB] Nebivolol HCl [Bystolic] 5 mg PO DAILY #30 tablet 06/29/18 Unknown Rx ED Physical Exam - General Limitations: No Limitations General appearance: alert, in no apparent distress - Head Head exam: Present: atraumatic, normocephalic, normal inspection - Eye Eye exam: Present: normal appearance - ENT ENT exam: Present: normal exam, normal orophraynx, mucous membranes moist - Neck Neck exam: Present: normal inspection, full ROM. Absent: tenderness, meningismus, lymphadenopathy, thyromegaly - Respiratory Respiratory exam: Present: normal lung sounds bilaterally, chest wall tenderness. Absent: respiratory distress, wheezes, rales, rhonchi, stridor, accessory muscle use, decreased breath sounds, prolonged expiratory - Cardiovascular Cardiovascular Exam: Present: bradycardia - GI/Abdominal GI/Abdominal exam: Present: soft, normal bowel sounds. Absent: distended, tenderness, guarding, rebound, rigid, organomegaly, mass, bruit, pulsatile mass, hernia - Extremities Exam Extremities exam: Present: normal inspection, full ROM, normal capillary refill. Absent: pedal edema, calf tenderness - Back Exam Back exam: Present: normal inspection, full ROM - Neurological Exam Neurological exam: Present: alert, oriented X3, CN II-XII intact, normal gait, reflexes normal - Skin Skin exam: Present: warm, intact, normal color ED Course Vital Signs 11/16/18 11/17/18 11/17/18 23:44 01:51 02:04 Temperature 98.5 F Pulse Rate 59 L 53 L Respiratory 14 14 Rate Blood Pressure 136/54 138/40 O2 Sat by Pulse 97 100 98 Oximetry 11/17/18 11/17/18 02:15 02:26 Temperature Pulse Rate 55 L Respiratory 20 18 Rate Blood Pressure 145/60 O2 Sat by Pulse 97 100 Oximetry CALEB score - Caleb Score Age > 65: (0) No Aspirin use within the Past 7 Days: (0) No 3 or more CAD Risk Factors: (0) No 2 or more Angina events in past 24 hrs: (1) Yes Known CAD with more than 50% Stenosis: (0) No ST Deviation Greater than 0.5mm: (0) No ED Medical Decision Making - Lab Data Result diagrams: 11/17/18 00:09 11/17/18 00:09 - EKG Data -: EKG Interpreted by [place] EKG shows normal: sinus rhythm Rate: bradycardia - EKG Data Interpretation: no acute changes - Radiology Data Radiology results: report reviewed Referring Physician: JEFFERY HENRY Patient Name: ESTHER CYR Date of : 1970 Sex: Female Report Date: 2018-11-17 Report Status: Finalized Findings [facility] [address] [place] [address] XRay Report Signed Patient: ESTHER CYR MR#: [id number] : 1970 Acct:[id number] Age/Sex: 48 / F ADM Date: 11/16/18 Loc: ED Attending Dr: Ordering Physician: JEFFERY HENRY Date of Service: 11/17/18 Procedure(s): XR chest 1V ap Accession Number(s): [id number] cc: JEFFERY HENRY Fluoro Time In Minutes: FINAL REPORT EXAM: XR CHEST 1V AP HISTORY: chest pain COMPARISON: June 2018. FINDINGS: Frontal view(s) of the chest obtained. Stable borderline cardiac enlargement. Shallow inspiration.. No gross consolidation or effusion. No pneumothorax. IMPRESSION: No grossly acute findings. Stable borderline cardiac enlargement. Transcribed By: LMA Dictated By: ALEXA LUGO MD Electronically Authenticated By: ALEXA LUGO MD Signed Date/Time: 11/17/18247 DD/ 8 TD/TT: 11/17/18248 - Medical Decision Making Patient is 48 years old female with history of hypertension. Patient presented to the ER complaining of left-sided chest pain for the last 2-3 months. Patient stated that pain get worse tonight. Patient described her pain as sharp, on and off, increases with movement and decreased with remaining still. Patient denied any shortness of breath, fever or cough. EKG is unremarkable. Chest x-ray is negative for acute finding. 2 sets of troponin is negative. I believe patient symptoms is most likely musculoskeletal since pain is reproducible. Patient will still need outpatient workup for cardiac cause. I advised the patient to follow with her primary care physician for possible stress test and further workup. Advised to return to the ER if her symptoms have not improved. Critical care attestation.: If time is entered above; I have spent that time in minutes in the direct care of this critically ill patient, excluding procedure time. ED Disposition Clinical Impression: Chest pain, Atypical chest pain Disposition: - TO HOME OR SELFCARE Is pt being admited?: No Condition: Stable Instructions: Chest Pain (ED), Costochondritis (ED) Referrals: PRIMARY CARE, [Primary Care Provider] - 3-5 Days
--- NOTE | 2018-11-17 02:48 | XRay Report ---
FINAL REPORT EXAM: XR CHEST 1V AP HISTORY: chest pain COMPARISON: June 2018. FINDINGS: Frontal view(s) of the chest obtained. Stable borderline cardiac enlargement. Shallow inspiration.. N o gross consolidation or effusion. No pneumothorax. IMPRESSION: No grossly acute findings. Stable borderline cardiac enlargement.
[2018-11-17] MEDS ORDERED: TORADOL IM ONE (03:48)
[2018-11-17 04:12] VITALS: BP 118/76
== END 2018-11-17 04:25 | disposition home or self-care (01) ==
LOC: ED 23:21
DX: R07.89 Other chest pain (principal); I10 Essential (primary) hypertension; F17.200 Nicotine dependence, unspecified, uncomplicated
CPT/HCPCS: 36415; 71045; 80048; 84484; 85025; 93005; 93010; 96372; 99284; J1885

== ENCOUNTER 2019-04-21 08:28 | Outpatient (CLI) | payer OTHER ==
[2019-04-21 11:17] LABS: Chol/HDL Ratio 2.9 %
[2019-04-25 15:08] LABS: Vitamin D, 25-OH, D2 <4 ng/mL
== END 2019-04-21 08:29 | disposition home or self-care (01) ==
LOC: LAB 08:28
PROVIDERS: ATTEND Internal Medicine
DX: Z13.1 Encounter for screening for diabetes mellitus (principal); E78.2 Mixed hyperlipidemia; E56.8 Deficiency of other vitamins; I10 Essential (primary) hypertension
CPT/HCPCS: 36415; 80061; 82306; 82607; 83036

== ENCOUNTER 2019-05-29 13:57 | Outpatient (CLI) | payer OTHER ==
--- NOTE | 2019-05-29 15:41 | Mammography Report ---
BILATERAL DIGITAL SCREENING MAMMOGRAM WITH CAD INDICATION: Screening. COMPARISONS: 06/17/2015 FINDINGS: Craniocaudal and mediolateral oblique views of both breasts were obtained using 2-D digital acquisition. In addition to standard review, the examination was analyzed for possible abnormalities using a computer-assisted detection device (iCAD). The breast tissue is heterogeneously dense, which may obscure small masses. A left asymmetry on the MLO view requires additional imaging. No architectural distortion or suspicio us calcifications. The right breast is negative. IMPRESSION: Left asymmetry requiring additional imaging. Recommend recall for a left MLO spot compression view an d left breast ultrasound if needed. BI-RADS CATEGORY 0: INCOMPLETE - NEED ADDITIONAL IMAGING EVALUATION AND/OR PRIOR MAMMOGRAMS FOR COMP ARISON Information is entered into a reminder system for a target due date for the next mammogram. The resul ts and recommendations were sent to the patient by mail. Signer Name: Marcial Rush MD Signed: 05/29/2019 3:37 PM Workstation Name: [id number]
== END 2019-05-29 13:58 | disposition home or self-care (01) ==
LOC: SPVWC 13:57
PROVIDERS: ATTEND Internal Medicine
DX: Z12.31 Encounter for screening mammogram for malignant neoplasm of breast (principal); I10 Essential (primary) hypertension
CPT/HCPCS: 77067

== ENCOUNTER 2019-09-08 10:06 | Outpatient (CLI) | payer OTHER ==
[2019-09-08 13:31] LABS: Basophils # (Auto) 0.1 K/mm3 (0.0-0.1); Basophils % (Auto) 0.9 % (0.0-1.8); Eosinophils # (Auto) 0.1 K/mm3 (0.0-0.4); Eosinophils % (Auto) 1.8 % (0.0-4.3); Hematocrit 40.7 % (30.3-42.9); Hemoglobin 13.4 gm/dl (10.1-14.3); Lymphocytes # (Auto) 2.4 K/mm3 (1.2-5.4); Mean Corpuscular HGB Conc 33 % (30-34); Mean Corpuscular Volume 94 fl (79-97); Monocytes # (Auto) 0.4 K/mm3 (0.0-0.8); Monocytes % (Auto) 6.2 % (0.0-7.3); Red Blood Count 4.31 M/mm3 (3.65-5.03); Red Cell Distribution Width 13.6 % (13.2-15.2)
[2019-09-08 14:26] LABS: Platelet Count 217 K/mm3 (140-440)
[2019-09-08 14:29] LABS: Alanine Aminotransferase 7 units/L (7-56); Albumin 4.4 g/dL (3.9-5); BUN/Creatinine Ratio 10; Blood Urea Nitrogen 7 mg/dL (7-17); Calcium 9.1 mg/dL (8.4-10.2); Chol/HDL Ratio 2.83 %; HDL Cholesterol 54 mg/dL (40-59); Hemolysis Index 5; LDL Cholesterol,Direct 100 mg/dL (50-130)
[2019-09-13 15:00] LABS: Vitamin D, 25-OH, D2 12 ng/mL
== END 2019-09-08 10:07 | disposition home or self-care (01) ==
LOC: LAB 10:06
PROVIDERS: ATTEND Internal Medicine
DX: Z13.29 Encounter for screening for other suspected endocrine disorder (principal); Z13.21 Encounter for screening for nutritional disorder; E55.9 Vitamin D deficiency, unspecified; E04.9 Nontoxic goiter, unspecified; E78.2 Mixed hyperlipidemia; R73.9 Hyperglycemia, unspecified
CPT/HCPCS: 36415; 80053; 80061; 82306; 82607; 83036; 84443; 85025

== ENCOUNTER 2020-11-12 09:43 | Outpatient (CLI) | payer BC, OTHER ==
--- NOTE | 2020-11-12 14:30 | Mammography Report ---
DIGITAL DIAGNOSTIC MAMMOGRAM WITH CAD CONVENTIONAL, 11/12/2020 CLINICAL INFORMATION / INDICATION: Follow-up of indeterminate left breast asymmetry. Routine screenin g of the right breast. TECHNIQUE: Digital bilateral mammographic imaging was performed. Spot compression views were obtaine d. This examination was interpreted with the benefit of Computer-aided Detection analysis. COMPARISON: 05/29/2019, 06/17/2015 FINDINGS: Breast Density: The breasts are heterogeneously dense, which may obscure small masses. No dominant mass, suspicious calcifications or architectural distortion in either breast. No persistent suspicious asymmetry is identified in the upper left breast on spot compression imaging . The previously described finding is compatible with summation of normal breast tissue. IMPRESSION: No mammographic evidence of malignancy. Follow up recommendation: Routine yearly BI-RADS Category 1: Negative. A "normal" or negative report should not discourage follow up or biopsy of a clinically significant f inding. A written summary of these findings will be mailed to the patient. The patient will be entered into a mammography reporting system which will generate a reminder letter for the patient's next appointmen t at the appropriate interval. According to the [employer], yearly mammograms are recommended starting at age 40 and continuing as long as a woman is in good health. Breast MRI is recommended for women with an tiffanie roximately 20-25% or greater lifetime risk of breast cancer, including women with a strong family his tory of breast or ovarian cancer and women who have been treated for Hodgkin's disease. Signer Name: Francisco Osborne MD Signed: 11/12/2020 2:26 PM Workstation Name: [email or web address]
== END 2020-11-12 09:44 | disposition home or self-care (01) ==
LOC: SPVWC 09:43
PROVIDERS: ATTEND Internal Medicine
DX: R92.8 Other abnormal and inconclusive findings on diagnostic imaging of breast (principal)
CPT/HCPCS: 77066

== ENCOUNTER 2021-12-11 09:42 | Outpatient (CLI) | payer OTHER ==
--- NOTE | 2021-12-12 09:15 | Mammography Report ---
DIGITAL SCREENING MAMMOGRAM WITH CAD, 12/11/2021 CLINICAL INFORMATION / INDICATION: Routine screening mammography. SCREENING MAMMOGRAM TECHNIQUE: Digital bilateral 2D mammography was obtained in the craniocaudal and mediolateral obliqu e projections. This examination was interpreted with the benefit of Computer-Aided Detection analysis . COMPARISON: 05/29/2019 and 06/17/2015 FINDINGS: Breast Density: The breasts are heterogeneously dense, which may obscure small masses. No dominant mass, suspicious calcifications, or architectural distortion in either breast. IMPRESSION: No mammographic evidence of malignancy. Follow up recommendation: Routine yearly BI-RADS Category 1: NEGATIVE A "normal" or negative report should not discourage follow up or biopsy of a clinically significant f inding. A written summary of these findings will be mailed to the patient. The patient will be entered into a mammography reporting system which will generate a reminder letter for the patient's next appointmen t at the appropriate interval. The [employer] recommends yearly mammograms starting at age 40 and continuing as l leonardo as a woman is in good health. Breast MRI is recommended for women with an approximate 20-25% or greater lifetime risk of breast cancer, including women with a strong family history of breast or ova connie cancer or who have been treated for Hodgkin's disease. Signer Name: Marco A Perez MD Signed: 12/12/2021 9:10 AM Workstation Name: [email or web address]
== END 2021-12-11 09:43 | disposition home or self-care (01) ==
LOC: MAMMO 09:42
PROVIDERS: ATTEND Internal Medicine
DX: Z12.31 Encounter for screening mammogram for malignant neoplasm of breast (principal)
CPT/HCPCS: 77067